=== PATIENT | male | born 1965 | race Caucasian/White ===

== ENCOUNTER 2023-04-27 19:38 | Emergency (ER) | payer BC ==
[2023-04-27] MEDS ORDERED: Ondansetron 4 MG/2 ML SDV IVPUSH ONE (20:09)
[2023-04-27 20:13] LABS: BASOPHILS ABSOLUTE AUTO 0.2 K/mm3 (0.0-0.2); BASOPHILS PERCENT AUTO 3.1 % (0.0-1.0); EOSINOPHILS PERCENT AUTO 0.7 % (0.0-6.0); HEMATOCRIT 47.5 % (42.0-52.0); HEMOGLOBIN 17.1 gm/dl (14.0-18.0); IMMATURE GRAN ABSOLUTE AUTO 0.01 K/mm3 (0.00-0.05); IMMATURE GRAN PERCENT AUTO 0.2 % (0.0-0.4); LYMPHOCYTES ABSOLUTE AUTO 2.2 K/mm3 (1.0-4.8); LYMPHOCYTES PERCENT AUTO 37.8 % (24.0-44.0); MEAN CORPUSCULAR HEMOGLOBIN 32.6 pg (28.0-32.0); MEAN CORPUSCULAR VOLUME 90.6 fl (83.0-99.0); MEAN PLATELET VOLUME 9.2 fl (9.4-12.4); MONOCYTES ABSOLUTE AUTO 0.6 K/mm3 (0.0-0.8); MONOCYTES PERCENT AUTO 10.3 % (0.0-8.0); NEUTROPHILS ABSOLUTE AUTO 2.8 K/mm3 (1.8-7.7); NEUTROPHILS PERCENT AUTO 47.9 % (41.0-71.0); PLATELET COUNT,PLT 214 K/mm3 (150-400); RED BLOOD CELL COUNT 5.24 M/mm3 (4.52-5.90); WHITE BLOOD CELL COUNT,WBC 5.82 K/mm3 (3.9-11.3)
[2023-04-27 20:27] LABS: INR 0.96; PROTHROMBIN TIME 10.3 SECONDS (9.7-12.0)
[2023-04-27 20:29] LABS: PTT,PARTIAL THROMBOPLSTIN TIME 27.8 SECONDS (21.7-31.4)
[2023-04-27 20:36] LABS: ALBUMIN 4.3 g/dl (3.4-5.0); ANION GAP 17.6 (5-15); BILIRUBIN TOTAL 0.5 mg/dL (0.2-1.0); BUN/CREATININE RATIO 8.8 (14-18); CALCIUM 8.9 mg/dL (8.5-10.1); CREATININE 0.8 mg/dL (0.7-1.3); EST CRCL DRUG DOSING (CG) 93.87 mL/min; ETHANOL BLOOD MEDICAL 0.34 gm% (0.00); POTASSIUM,K 3.6 mEq/L (3.5-5.1); PROTEIN TOTAL,TP 8.7 g/dl (6.4-8.2)
[2023-04-27] MEDS ORDERED: predniSONE 20 MG Tab PO ONE (21:28)
[2023-04-27] MEDS ORDERED: valACYclovir 1,000 MG Tab PO ONE (21:29)
== END 2023-04-27 21:55 | disposition home or self-care (01) ==
LOC: JD.ED 19:38
DX: G51.0 Bell's palsy (principal); R78.0 Finding of alcohol in blood; Y90.0 Blood alcohol level of less than 20 mg/100 ml
CPT/HCPCS: 36415; 70450; 70496; 70498; 71045; 80053; 80307; 82947; 84484; 85025; 85610; 85730; 93005; 96374; 99285; A9270; J2405; J7512

== ENCOUNTER 2024-03-05 07:36 | Day surgery (SDC) | payer BC ==
[~2024-03-05 07:36] MED LIST: HYDROmorphone 0.5 MG/0.5 ML Syringe IVPUSH PRN; Ondansetron 4 MG/2 ML SDV IVPUSH PRN; Sodium Chloride 0.9% 10 ML Syringe FLUSH PRN; Sodium Chloride 0.9% 10 ML Syringe FLUSH SCH; fentaNYL 100 MCG/2 ML SDV IVPUSH PRN
[2024-03-05] MEDS: Lactated Ringers 1,000 ML IV SCH (08:00)
[2024-03-05] MEDS ORDERED: Lidocaine 1% 4 ML ONE ×2 (08:57→08:58)
[2024-03-05] MEDS ORDERED: Propofol 200 MG/20 ML SDV ONE ×3 (08:57)
== END 2024-03-05 10:10 | disposition home or self-care (01) ==
LOC: JD.SDS 07:36
PROVIDERS: ATTEND Surgery
DX: Z12.11 Encounter for screening for malignant neoplasm of colon (principal); I10 Essential (primary) hypertension; K21.9 Gastro-esophageal reflux disease without esophagitis; F17.210 Nicotine dependence, cigarettes, uncomplicated; Z79.899 Other long term (current) drug therapy
CPT/HCPCS: 45378; J2704; J7120; J3490